=== PATIENT | female | born 1990 | race American Indian/Alaskan Native ===

== ENCOUNTER 2017-04-27 11:12 | Emergency (ER) | payer OTHER ==
[2017-04-27] MEDS ORDERED: TYLENOL PO ONE (12:12)
[2017-04-27 12:17] LABS: Basophils % (Auto) 0.4 % (0.0-1.8); Eosinophils % (Auto) 2.2 % (0.0-4.3); Hematocrit 39.4 % (30.3-42.9); Mean Corpuscular HGB Conc 33 % (30-34); Mean Corpuscular Hemoglobin 30 pg (28-32); Mean Corpuscular Volume 90 fl (79-97); Platelet Count 185 K/mm3 (140-440); Red Cell Distribution Width 13.8 % (13.2-15.2); White Blood Count 8.9 K/mm3 (4.5-11.0)
--- NOTE | 2017-04-27 12:22 | Emergency Department Report ---
ED Female HPI - General Chief complaint: Abdominal Pain Stated complaint: APPROX 4-5 WKS PREG/ABD PAIN Time Seen by Provider: 04/27/17 12:01 Source: patient Mode of arrival: Ambulatory Limitations: No Limitations - History of Present Illness Initial comments: PT c/o lower abd cramping x 1 week. 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 PT States she had tension headache last week, so she took a home test and it was positive. PT states she was went to and was given urine test and told that she was and to follow up with [facility]. PT states she called ob/ chore worker and she has appointment 05-23-17. PT states she was told that she should be eight weeks for first visit. PT states she thinks she is 4-5 weeks . PT states she has not taken anything for the pain. PT states she is not taking vitamins. Complaint: pelvic pain -: week(s) (1) Radiation: suprapubic Severity scale (0 -10): 6 Quality: cramping Consistency: constant Improves with: none Worsens with: none Are you Now?: Yes Last Menstrual Period: 03/19/17 EDC: 12/24/17 Associated Symptoms: denies other symptoms - Related Data Sexually active: Yes : 2 A: 1 Previous Rx's Medication Instructions Recorded Last Taken Type Vit-Fe Fumar-FA [ 1 tab PO QDAY #30 tablet 04/27/17 Unknown Rx Vitamin] Allergies Allergy/AdvReac Type Severity Reaction Status Date / Time No Known Allergies Allergy Unverified 04/27/17 11:33 ED Review of Systems ROS: Stated complaint: APPROX 4-5 WKS PREG/ABD PAIN Other details as noted in HPI Constitutional: denies: chills, fever Gastrointestinal: abdominal pain, nausea. denies: vomiting Genitourinary: abnormal menses (No cycle in april, denies vaginal bleeding ). denies: dysuria, hematuria ED Past Medical Hx - Past Medical History Previous Medical History?: No - Surgical History Past Surgical History?: No - Social History Smoking Status: Never Smoker Substance Use Type: Alcohol - Medications Home Medications: Home Medications Medication Instructions Recorded Confirmed Last Taken Type Vit-Fe Fumar-FA [ 1 tab PO QDAY #30 tablet 04/27/17 Unknown Rx Vitamin] ED Physical Exam - General Limitations: No Limitations General appearance: alert, in no apparent distress - Head Head exam: Present: atraumatic, normocephalic, normal inspection - Eye Eye exam: Present: normal appearance. Absent: conjunctival injection - ENT ENT exam: Present: normal exam, normal external ear exam - Neck Neck exam: Present: normal inspection, full ROM. Absent: tenderness - Respiratory Respiratory exam: Present: normal lung sounds bilaterally. Absent: respiratory distress - Cardiovascular Cardiovascular Exam: Present: regular rate, normal rhythm, normal heart sounds - GI/Abdominal GI/Abdominal exam: Present: soft, normal bowel sounds. Absent: tenderness, guarding, rebound, rigid - Extremities Exam Extremities exam: Present: normal inspection, full ROM - Back Exam Back exam: Present: normal inspection, full ROM. Absent: tenderness, CVA tenderness (R), CVA tenderness (L), muscle spasm, paraspinal tenderness, vertebral tenderness - Neurological Exam Neurological exam: Present: alert, oriented X3, normal gait - Psychiatric Psychiatric exam: Present: normal affect, normal mood - Skin Skin exam: Present: warm, dry, intact, normal color ED Course Vital Signs 04/27/17 04/27/17 04/27/17 11:26 12:20 14:50 Temperature 98.7 F Pulse Rate 73 81 Respiratory 18 16 18 Rate Blood Pressure 125/76 Blood Pressure 130/65 [Left] O2 Sat by Pulse 100 98 Oximetry - Reevaluation(s) Reevaluation #1: 04/27/17 12:27 PT aware of plan of care. PT has no questions at this time. Reevaluation #2: 04/27/17 14:32 PT aware of US findings. PT has no questions at this time. PT is aware she is to follow up with OB/ [facility]. PT also advised to return to ED in 72 hours for repeat hcg. PT has no questions at this time. - Pulse Oximetry Interpretation Digit-Finger Initial Pulse Oximetry Readin Actions Taken: none ED Medical Decision Making - Lab Data Result diagrams: 04/27/17 11:56 04/27/17 11:56 Laboratory Results - last 72 hr 04/27/17 04/27/17 04/27/17 11:56 11:56 11:56 WBC 8.9 RBC 4.40 Hgb 13.0 Hct 39.4 MCV 90 MCH 30 MCHC 33 RDW 13.8 Plt Count 185 Lymph % (Auto) 24.7 George % (Auto) 6.0 Eos % (Auto) 2.2 Baso % (Auto) 0.4 Lymph # 2.2 George # 0.5 Eos # 0.2 Baso # 0.0 Seg Neutrophils % 66.7 Seg Neutrophils # 6.0 Sodium 138 Potassium 3.8 Chloride 99.0 Carbon Dioxide 26 Anion Gap 17 BUN 7 Creatinine 0.6 L Estimated GFR > 60 BUN/Creatinine Ratio 11.66 Glucose 89 Calcium 9.1 Total Bilirubin 0.20 AST 15 ALT 13 Alkaline Phosphatase 73 Total Protein 7.0 Albumin 3.8 L Albumin/Globulin Ratio 1.2 HCG, Quant 48313 H Urine Color Urine Turbidity Urine pH Ur Specific [place] Urine Protein Urine Glucose (UA) Urine Ketones Urine Blood Urine Nitrite Urine Bilirubin Urine Urobilinogen Ur Leukocyte Esterase Urine WBC (Auto) Urine RBC (Auto) U Epithel Cells (Auto) Urine Bacteria (Auto) 04/27/17 12:16 WBC RBC Hgb Hct MCV MCH MCHC RDW Plt Count Lymph % (Auto) George % (Auto) Eos % (Auto) Baso % (Auto) Lymph # George # Eos # Baso # Seg Neutrophils % Seg Neutrophils # Sodium Potassium Chloride Carbon Dioxide Anion Gap BUN Creatinine Estimated GFR BUN/Creatinine Ratio Glucose Calcium Total Bilirubin AST ALT Alkaline Phosphatase Total Protein Albumin Albumin/Globulin Ratio HCG, Quant Urine Color Yellow Urine Turbidity Clear Urine pH 7.0 Ur Specific [place] 1.016 Urine Protein <15 mg/dl Urine Glucose (UA) Neg Urine Ketones Neg Urine Blood Neg Urine Nitrite Neg Urine Bilirubin Neg Urine Urobilinogen < 2.0 Ur Leukocyte Esterase Neg Urine WBC (Auto) < 1.0 Urine RBC (Auto) 2.0 U Epithel Cells (Auto) 1.0 Urine Bacteria (Auto) 1+ - Radiology Data Radiology results: report reviewed US - 5 weeks 6 days - Differential Diagnosis threatened miscarriage, ectopic, uti Critical Care Time: No Critical care attestation.: If time is entered above; I have spent that time in minutes in the direct care of this critically ill patient, excluding procedure time. ED Disposition Clinical Impression: Abdominal pain affecting Disposition: DC-01 TO HOME OR SELFCARE Is pt being admited?: No Does the pt Need Aspirin: No Condition: Stable Instructions: Threatened Miscarriage (ED), Abdominal Pain (ED) Additional Instructions: Pelvic rest for the next 7 days Follow up in 72 hours for repeat bhcg level Return to the ed if worsening or concerns Follow up with OB/ [facility]ES SERVICE [facility]OM[facility]ER early next week OTC Tylenol as needed for cramps Prescriptions: Vit-Fe Fumar-FA [ Vitamin] 1 tab PO QDAY #30 tablet Referrals: PRIMARY CARE [Primary Care Provider] - 3-5 Days [facility] [Provider Group] - 3-5 Days Forms: Work/School Release Form(ED) Time of Disposition: 14:37
[2017-04-27 12:28] LABS: Alanine Aminotransferase 13 units/L (7-56); Albumin 3.8 g/dL (3.9-5); Albumin/Globulin Ratio 1.2 %; Alkaline Phosphatase 73 units/L (35-129); BUN/Creatinine Ratio 11.66; Blood Urea Nitrogen 7 mg/dL (7-17); Calcium 9.1 mg/dL (8.4-10.2); Carbon Dioxide 26 mmol/L (22-30); Glucose 89 mg/dL (65-100)
[2017-04-27 12:29] LABS: Anion Gap 17 mmol/L; Potassium 3.8 mmol/L (3.6-5.0); Sodium 138 mmol/L (137-145)
[2017-04-27 12:36] LABS: Bacteria,Urine 1+ /HPF (Negative); Bilirubin,Urine NEG (Negative); Blood,Urine NEG (Negative); Ketones,Urine NEG (Negative); Leukocyte Esterase,Urine NEG (Negative); Nitrite,Urine NEG (Negative); Protein,Urine <15 mg/dL mg/dL (Negative); Urobilinogen,Urine < 2.0 mg/dL (<2.0); WBC,Urine < 1.0 /HPF (0.0-6.0)
--- NOTE | 2017-04-27 14:10 | Ultrasound Report ---
FINAL REPORT PROCEDURE: US OB \T\lt; = 14 WEEKS FETUS TECHNIQUE: Real-time transabdominal and transvaginal sonography of the uterus, placenta, amniotic fluid, adnexa, and fetus was performed with image documentation. Measurements were obtained to determine age/size. M-mode Doppler was used to document heartbeat. CPT 58374 and 32377 HISTORY: and vaginal d/c COMPARISON: No prior studies are available for comparison. FINDINGS: ADDITIONAL GESTATION: None. Single live intrauterine is seen with crown-rump length of 2.6 millimeters corresponding to 5 weeks 6 days gestational age. Estimated date of delivery based on this measurement is December 22, 2017. heart rate is 101 beats per minute. Yolk sac is seen. Right ovary measures 4.6 x 3.3 x 1.9 cm. It has a 2.3 cm complex cyst. Left ovary measures 3.6 x 1.1 x 2.5 cm. Color Doppler flow is seen in both ovaries. Mild free fluid is seen in the cul-de-sac. IMPRESSION: 1. Single live intrauterine gestation at approximately 5 weeks 6 days. 2. EDC by US December 22, 2017. 3. Complete anatomic survey at 18-20 weeks suggested.
--- NOTE | 2017-04-27 14:11 | Ultrasound Report ---
FINAL REPORT PROCEDURE: US OB TRANSVAGINAL TECHNIQUE: Real-time transabdominal and transvaginal sonography of the uterus, placenta, amniotic fluid, adnexa, and fetus was performed with image documentation. Measurements were obtained to determine age/size. M-mode Doppler was used to document heartbeat. CPT 75410 and 90403 HISTORY: early preg, pain COMPARISON: No prior studies are available for comparison. FINDINGS: ADDITIONAL GESTATION: None. Single live intrauterine is seen with crown-rump length of 2.6 millimeters corresponding to 5 weeks 6 days gestational age. Estimated date of delivery based on this measurement is December 22, 2017. heart rate is 101 beats per minute. Yolk sac is seen. Right ovary measures 4.6 x 3.3 x 1.9 cm. It has a 2.3 cm complex cyst. Left ovary measures 3.6 x 1.1 x 2.5 cm. Color Doppler flow is seen in both ovaries. Mild free fluid is seen in the cul-de-sac. IMPRESSION: 1. Single live intrauterine gestation at approximately 5 weeks 6 days. 2. EDC by US December 22, 2017. 3. Complete anatomic survey at 18-20 weeks suggested.
[2017-04-27 16:21] VITALS: BP 130/65
== END 2017-04-27 14:50 | disposition home or self-care (01) ==
LOC: ED 11:12
DX: O26.891 Other specified pregnancy related conditions, first trimester (principal); R10.9 Unspecified abdominal pain; Z3A.01 Less than 8 weeks gestation of pregnancy
CPT/HCPCS: 36415; 76801; 76817; 80053; 81001; 84702; 85025; 87086

== ENCOUNTER 2017-05-01 17:34 | Emergency (ER) | payer OTHER ==
[2017-05-01 17:50] VITALS: BP 117/74
--- NOTE | 2017-05-01 22:59 | Emergency Department Report ---
ED N/V/D HPI - General Chief complaint: Nausea/Vomiting/Diarrhea Stated complaint: 6WKS PREG/VOMITING Time Seen by Provider: 05/01/17 22:56 Source: patient, family Mode of arrival: Ambulatory Limitations: No Limitations - History of Present Illness Initial comments: Patient here with a family member reports that she has nausea and she is at 6 weeks . She said her BIRD SITTER is in [facility]. She says she cannot tolerate any food. She says she is drinking a minimal amount of fluids. She does not have any active examination in the emergency room today. She was seen here 4 days ago which is 04/27/17 and she had lab work done and she also had a test confirmed. She said she does not have any vaginal bleeding or abdominal pain. Denies any urinary burning frequency or urgency. Denies any vaginal discharge. Denies any fever or chills. Denies any coughing or shortness of breath. No medication taken for nausea she said she is on vitamin but they didn't give her anything for nausea. MD complaint: nausea, vomiting -: week(s) Description of Vomiting: food contents Associated Abdominal Pain: No Pain Scale: 0 Context: other (patient recently found out she was .) Associated Symptoms: loss of appetite, nausea/vomiting. denies: cough, diaphoresis, fever/chills, headaches, malaise, rash, dysuria, shortness of breath, syncope, weakness - Related Data Previous Rx's Medication Instructions Recorded Last Taken Type Vit-Fe Fumar-FA [ 1 tab PO QDAY #30 tablet 04/27/17 Unknown Rx Vitamin] Doxylamine/Pyridoxine HCl 1 each PO TID PRN #15 tablet. 05/02/17 Unknown Rx [Cynthia Arevalo 10-10 mg Tablet] Allergies Allergy/AdvReac Type Severity Reaction Status Date / Time No Known Allergies Allergy Unverified 04/27/17 11:33 ED Review of Systems ROS: Stated complaint: 6WKS PREG/VOMITING Other details as noted in HPI Comment: All other systems reviewed and negative Constitutional: denies: chills, fever, malaise, weakness ENT: denies: ear pain, throat pain, congestion Respiratory: no symptoms reported Cardiovascular: denies: chest pain, palpitations, edema, syncope Gastrointestinal: nausea, vomiting. denies: abdominal pain, diarrhea, constipation, hematemesis, melena, hematochezia Genitourinary: denies: urgency, dysuria, frequency, hematuria, discharge Musculoskeletal: denies: back pain, arthralgia, myalgia Skin: denies: rash Neurological: denies: headache, weakness, numbness, paresthesias, confusion, abnormal gait, vertigo ED Past Medical Hx - Past Medical History Previous Medical History?: No - Surgical History Past Surgical History?: No - Family History Family history: no significant - Social History Smoking Status: Never Smoker Substance Use Type: Non Opiate Pain, Prescribed - Medications Home Medications: Home Medications Medication Instructions Recorded Confirmed Last Taken Type Vit-Fe Fumar-FA [ 1 tab PO QDAY #30 tablet 04/27/17 Unknown Rx Vitamin] Doxylamine/Pyridoxine HCl 1 each PO TID PRN #15 tablet. 05/02/17 Unknown Rx [Diclegis 10-10 mg Tablet] ED Physical Exam - General Limitations: No Limitations General appearance: alert, in no apparent distress - Head Head exam: Present: atraumatic, normocephalic, normal inspection - Eye Eye exam: Present: normal appearance, PERRL, EOMI. Absent: scleral icterus, conjunctival injection, periorbital swelling, periorbital tenderness Pupils: Present: normal accommodation - ENT ENT exam: Present: normal exam, normal orophraynx, mucous membranes moist, TM's normal bilaterally, normal external ear exam - Neck Neck exam: Present: normal inspection, full ROM. Absent: tenderness, meningismus, lymphadenopathy - Respiratory Respiratory exam: Present: normal lung sounds bilaterally. Absent: respiratory distress, wheezes, rales, rhonchi, stridor, chest wall tenderness, accessory muscle use - Cardiovascular Cardiovascular Exam: Present: regular rate, normal rhythm, normal heart sounds - GI/Abdominal GI/Abdominal exam: Present: soft, normal bowel sounds. Absent: distended, tenderness, guarding, rebound, rigid - Extremities Exam Extremities exam: Present: normal inspection, full ROM, normal capillary refill. Absent: tenderness, pedal edema, joint swelling, calf tenderness - Back Exam Back exam: Present: normal inspection, full ROM. Absent: tenderness - Neurological Exam Neurological exam: Present: alert, oriented X3, normal gait, reflexes normal. Absent: motor sensory deficit - Psychiatric Psychiatric exam: Present: normal affect, normal mood - Skin Skin exam: Present: warm, dry, intact, normal color. Absent: rash ED Course Vital Signs 05/01/17 17:45 Temperature 99 F Pulse Rate 79 Respiratory 20 Rate Blood Pressure 117/74 O2 Sat by Pulse 100 Oximetry - Reevaluation(s) Reevaluation #1: 05/02/17 01:29 Patient given IV fluid normal saline 1 L and Zofran 4 mg IV. She says she is feeling better. ED Medical Decision Making - Lab Data Result diagrams: 05/01/17 23:33 05/01/17 23:33 Lab Results 05/01/17 05/01/17 05/01/17 Range/Units 23:33 23:33 23:33 WBC 7.8 (4.5-11.0) K/mm3 RBC 4.73 (3.65-5.03) M/mm3 Hgb 13.8 (10.1-14.3) gm/dl Hct 43.5 H (30.3-42.9) % MCV 92 (79-97) fl MCH 29 (28-32) pg MCHC 32 (30-34) % RDW 13.6 (13.2-15.2) % Plt Count 114 L (140-440) K/mm3 Lymph % (Auto) Distribution Warehouse Manager [place] % (Auto) Distribution Warehouse Manager Eos % (Auto) Distribution Warehouse Manager Baso % (Auto) Distribution Warehouse Manager Lymph # Distribution Warehouse Manager [place] # Distribution Warehouse Manager Eos # Distribution Warehouse Manager Baso # Distribution Warehouse Manager Seg Neutrophils % Distribution Warehouse Manager Seg Neutrophils # Distribution Warehouse Manager Sodium 137 (137-145) mmol/L Potassium 4.2 (3.6-5.0) mmol/L Chloride 97.9 L (98-107) mmol/L Carbon Dioxide 22 (22-30) mmol/L Anion Gap 21 mmol/L BUN 7 (7-17) mg/dL Creatinine 0.6 L (0.7-1.2) mg/dL Estimated GFR > 60 ml/min BUN/Creatinine Ratio 11.66 % Glucose 95 (65-100) mg/dL Calcium 9.3 (8.4-10.2) mg/dL HCG, Quant 89252 H (0-4) mIU/mL - Medical Decision Making ED course: Patient had -induced nausea and vomiting without any other related issues. Her was confirmed on 04/27/2017 quantitative hCG. [place] that time was [address] [place] [address]. CBC and BMP stable. Urinalysis from 04/27/2017 was stable therefore there are no need for a repeat urinalysis because patient was not having any urinary burning, frequency or urgency or blood in her urine. Patient said her BIRD SITTER is not going to see her until she is 8 weeks was in 2 weeks and she is having nausea constantly and made something to help with her nausea. I discussed case with Dr. Choudhary Pt presentation, previous visit, current complaints, lab findings. itr was decided the patient will be placed on that Diclegis and she needs to follow up with her primary care doctor and BIRD SITTER doctor for further management of her . I Discussed all lab work with patient and instructed her she needs to call her BIRD SITTER to schedule an appointment and to let them know she was started on Ticlid just for nausea and vomiting. Critical care attestation.: If time is entered above; I have spent that time in minutes in the direct care of this critically ill patient, excluding procedure time. ED Disposition Clinical Impression: Nausea and vomiting in prior to 22 weeks gestation Disposition: DC-01 TO HOME OR SELFCARE Is pt being admited?: No Does the pt Need Aspirin: No Condition: Stable Instructions: Morning Sickness (ED), Acute Nausea and Vomiting (ED) Additional Instructions: Please increase her fluid intake. Take Diclegis as instructed for nausea. Call your BIRD SITTER doctor to schedule a visit and let her know that he was started on this medication Prescriptions: Doxylamine/Pyridoxine HCl [Cynthia Arevalo 10-10 mg Tablet] 1 each PO TID PRN #15 tablet.dr [place] Reason: Nausea And Vomiting Referrals: YODIT FERNANDES MD [Staff Physician] - 05/03/17 Your, BIRD SITTER [Other] - 05/03/17 Forms: Accompanied Note, Work/School Release Form(ED)
[2017-05-01] MEDS ORDERED: ZOFRAN IV ONE (23:19)
[2017-05-01] MEDS ORDERED: NACL 0.9% 1000 ML 1,000 ML IV ONE (23:19)
[2017-05-02 00:09] LABS: Anion Gap 21 mmol/L; BUN/Creatinine Ratio 11.66; Blood Urea Nitrogen 7 mg/dL (7-17); Calcium 9.3 mg/dL (8.4-10.2); Carbon Dioxide 22 mmol/L (22-30); Chloride 97.9 mmol/L (98-107); Glucose 95 mg/dL (65-100); Potassium 4.2 mmol/L (3.6-5.0); Sodium 137 mmol/L (137-145)
[2017-05-02 00:32] LABS: Hematocrit 43.5 % (30.3-42.9); Hemoglobin 13.8 gm/dl (10.1-14.3); Mean Corpuscular HGB Conc 32 % (30-34); Mean Corpuscular Hemoglobin 29 pg (28-32); Mean Corpuscular Volume 92 fl (79-97); Platelet Count 114 K/mm3 (140-440); Red Blood Count 4.73 M/mm3 (3.65-5.03); Red Cell Distribution Width 13.6 % (13.2-15.2); White Blood Count 7.8 K/mm3 (4.5-11.0)
[2017-05-02 06:12] LABS: Anisocytosis 1+; Basophils % (Manual) 0 % (0.0-1.8); Blastocytes % (Manual) 0 %; Diff Status Complete; Eosinophils % (Manual) 0 % (0.0-4.3); Hypersegmented Neutrophils Few; Platelet Estimate Consistent w Auto
== END 2017-05-02 01:57 | disposition home or self-care (01) ==
LOC: ED 17:34
DX: O21.9 Vomiting of pregnancy, unspecified (principal); Z3A.01 Less than 8 weeks gestation of pregnancy
CPT/HCPCS: 36415; 80048; 84702; 85007; 85025; 96361; 96374; 99283; J2405; J7030